=== PATIENT | male | born 1955 | race Caucasian/White ===

== ENCOUNTER 2017-01-09 12:37 | Day surgery (SDC) | payer BC ==
[~2017-01-09] VITALS: Ht 182.9 cm; Wt 82.7 kg
[~2017-01-09 12:37] MED LIST: NON
[2017-01-09 13:21] VITALS: Ht 182.9 cm; Wt 82.7 kg
[2017-01-09] MEDS ORDERED: NO MEDS. (13:33)
[2017-01-09 13:45] VITALS: BP 128/77; PULSE 56; RESP 16
--- NOTE | 2017-01-09 14:35 | OPPN ---
Date/Time of Note Date/Time of Note DATE: 01/09/17 TIME: 14:33 Operative Report Preoperative Diagnosis Screening colonoscopy Postoperative Diagnosis Poor prep Internal hemorrhoids Diverticulosis of the colon No gross neoplasm is identified Operation/Procedure Performed Colonoscopy Surgeon see signature line diagnostic assistant None Anesthesia: moderate sedation Estimated blood loss: none Transfusion Required none Specimen None Grafts/Implants none Complications none JUDAH HAGER MD Jan 09, 2017 14:35
[2017-01-09] MEDS ORDERED: MIDAZOLAM 1 MG/ML 2 ML INJ ONE ×2 (14:46)
[2017-01-09] MEDS ORDERED: FENTAnyl 50 MCG/ML VIAL ONE (14:46)
--- NOTE | 2017-01-09 14:58 | GILP ---
DATE OF PROCEDURE: NAME OF PROCEDURE: Colonoscopy. SURGEON: Lissy Salazar MD PREOPERATIVE DIAGNOSIS: Screening colonoscopy. POSTOPERATIVE DIAGNOSES 1. Colonoscopy all the way to the cecum. 2. Internal hemorrhoids. 3. Poor prep making the exam suboptimal. 4. No gross neoplasm was identified. INDICATION FOR THE PROCEDURE: Mr. Harsha Palomino is a 61-year-old male patient who was scheduled f or screening colonoscopy. He also had history of colon polyps. The procedure and possible complications are well explained to the patient, he understood and consen jefferson to the procedure. DESCRIPTION OF PROCEDURE: Under the influence of fentanyl and Versed, the colonoscope was carefully introduced in the rectum and under direct vision it was advanced all the way to the cecum. FINDINGS: The patient had a poor prep making the exam very suboptimal. The patient was noted to vora ve diverticulosis of the colon and internal hemorrhoids. No gross neoplasm was identified. He tolerated the procedure very well and there was no complication from the procedure. At the end o f the procedure, he was awake with stable vital signs and he was discharged home to the care of his family. IMPRESSION: Please see postoperative diagnoses. PLAN: Because of the poor prep, the suboptimal nature of the examination, would recommend next scre ening colonoscopy in 2-3 years with better preparation. Dictated By: LISSY GENAO/ISAI Conf#: [id number] DID#: [id number]
[2017-01-09 15:06] VITALS: BP 115/78; PULSE 62; RESP 18
== END 2017-01-09 16:59 | disposition home or self-care (01) ==
LOC: GIL 12:37
PROVIDERS: ATTEND Internal Medicine Gastroenterology
DX: Z12.11 Encounter for screening for malignant neoplasm of colon (principal); K64.8 Other hemorrhoids
CPT/HCPCS: 45378; J2250; J3010